=== PATIENT | female | born 1970 | race American Indian/Alaskan Native ===

== ENCOUNTER 2018-08-18 17:38 | Emergency (ER) | payer SELFPAY ==
[2018-08-18 17:47] VITALS: BMI 30.2
[2018-08-18 17:50] VITALS: BP 107/70; PULSE 76; RESP 18; TEMP 99
[2018-08-18] MEDS ORDERED: Tdap Vaccine 0.5 ml Vial (10-64 yrs) IM ONE ×2 (18:12→18:58)
--- NOTE | 2018-08-18 18:40 | C.PDOC ---
History Of Present Illness 47 year old female presents to the ED for evaluation of a laceration she sustained to her right index finger sustained prior to arrival. Patient states she was using a [employer] slicer to slice potatoes, when she accidentally injured her finger. Patient's last tetanus immunization status is unknown. She denies any other injuries or extremity numbness/weakness at this time. Time Seen by Provider: 08/18/18 18:11 Chief Complaint (Nursing): Finger,Hand,&Wrist History Per: Patient History/Exam Limitations: no limitations Onset/Duration Of Symptoms: Hrs Current Symptoms Are (Timing): Still Present Quality: "Pain" Additional History Per: Patient Past Medical History Reviewed: Historical Data, Nursing Documentation, Vital Signs Vital Signs: Last Vital Signs Temp 99.0 F 08/18/18 17:47 Pulse 76 08/18/18 17:47 Resp 18 08/18/18 17:47 BP 107/70 08/18/18 17:47 Pulse Ox 95 08/18/18 17:47 - Medical History PMH: Arthritis, HTN Surgical History: No Surg Hx Family History: States: Unknown Family Hx - Social History Hx Alcohol Use: No Hx Substance Use: Yes - Immunization History Hx Tetanus Toxoid Vaccination: No Hx Influenza Vaccination: No Hx Pneumococcal Vaccination: No Review Of Systems Skin: Positive for: Other (laceration to right index finger) Neurological: Negative for: Weakness, Numbness Physical Exam - Physical Exam Appears: Non-toxic, No Acute Distress Skin: Normal Color, Warm, Dry, Other (0.5cm avulsed tissue to lateral aspect of right index finger, with some active bleeding ) Extremity: Normal ROM, Capillary Refill (less than 2 seconds ) Neurological/Psych: Oriented x3, Normal Speech, Normal Cognition ED Course And Treatment O2 Sat by Pulse Oximetry: 95 (on RA) Pulse Ox Interpretation: Normal Laceration - Laceration Repair 0.5 Wound Length (In cm): 0.5 Description Of Wound: Clean Wound Cleansed With: Sterile Saline Wound Examination: Irrigated With Saline Wound Closure: Skin Glue ( avulsed tissue. covered with surgicell) Medical Decision Making Medical Decision Making: Progress: Tetanus IM and Tylenol PO given. Disposition Counseled Patient/Family Regarding: Diagnosis, Need For Followup - Disposition Disposition Time: 18:51 Additional Instructions: Keep right index finger clean and dry for next few days with surgicell on it, then start using normally. Surgicell will fall off on its own. Forms: General Discharge Instructions, [facility] (Congolese) - Clinical Impression Clinical Impression: Avulsion of skin of index finger - PA / [employer] / Resident Statement MD/DO has reviewed & agrees with the documentation as recorded. - Scribe Statement The provider has reviewed the documentation as recorded by the Scribe (Suma Baez) All medical record entries made by the Scribe were at my direction and personally dictated by me. I have reviewed the chart and agree that the record accurately reflects my personal performance of the history, physical exam, medical decision making, and the department course for this patient. I have also personally directed, reviewed, and agree with the discharge instructions and disposition.
[2018-08-18 19:15] VITALS: O2SAT 95
== END 2018-08-18 19:00 | disposition home or self-care (01) ==
LOC: C.ER 17:38
DX: S61.300A Unspecified open wound of right index finger with damage to nail, initial encounter (principal); W45.8XXA Other foreign body or object entering through skin, initial encounter; Y93.G1 Activity, food preparation and clean up